=== PATIENT | male | born 1990 | race African-American/Black ===

== ENCOUNTER 2021-10-31 10:40 | Emergency (ER) | payer MEDICAID ==
[~2021-10-31] VITALS: Ht 180.3 cm; Wt 65.8 kg
[2021-10-31 11:39] VITALS: BP 143/86
== END 2021-10-31 13:12 | disposition home or self-care (01) ==
LOC: ER 10:40
DX: G51.0 Bell's palsy (principal)
CPT/HCPCS: 70450

== ENCOUNTER 2024-04-07 20:34 | Emergency (ER) | payer MEDICAID ==
[~2024-04-07] VITALS: Ht 180.3 cm; Wt 73.8 kg
[2024-04-07] MEDS ORDERED: CLIN1CAP70 PO (23:00)
[2024-04-07] MEDS ORDERED: HYDR-4902 PO (23:00)
[2024-04-08] MEDS: HYDROcodone-ACET 5/325MG TAB PO ONE (01:43)
[2024-04-08] MEDS: CLINDAMYCIN HCL 150 MG CAP PO ONE (01:46)
[2024-04-08 01:52] VITALS: BP 129/78; PULSE 77; RESP 18; TEMP 98.6
[2024-04-08 01:53] VITALS: O2SAT 100
== END 2024-04-08 02:03 | disposition home or self-care (01) ==
LOC: ER 20:34
DX: K02.9 Dental caries, unspecified (principal); K04.7 Periapical abscess without sinus; J45.909 Unspecified asthma, uncomplicated

== ENCOUNTER 2024-08-22 17:06 | Emergency (ER) | payer MEDICAID ==
[~2024-08-22] VITALS: Ht 180.3 cm; Wt 75.7 kg
[~2024-08-22 17:06] MED LIST: CLIN1CAP70 PO; HYDR-4902 PO
--- NOTE | 2024-08-22 17:29 | ECG ---
[facility] Test Date: 2024-08-22 Test Time: 17:11:00 Pat Name: TYLER MEJIA Department: ER Room: Gender: M Rehab Liaison: BARNEY : 1990 Requested By: ARON NORRIS Order Number: [id number] Reading MD: Fantasma Johnson Measurements Intervals [place] Rate: 73 P: 42 [place]: 166 QRS: -56 QRSD: 116 T: 32 QT: 392 QTc: 432 Interpretive Statements Sinus rhythm Incomplete RBBB and LAFB ST elevation suggests acute pericarditis Electronically Signed On 08-31-2024 12:56:57 PST by Fantasma Johnson Please click the below link to view image of tracing.
--- NOTE | 2024-08-22 17:32 | ED.PDOC ---
HPI Comments HPI: Poor Historian. 34y M who presents to the ED for chief complaint of chest pain. Pt states he has been having chest pain for "past few months." Pt states the pain is sharp in nature, L side of chest , non-radiating, intermittnet, with noted exacerbation of pain with movement or ambulation and no relieving factors. Pt denies any associated symptoms but denies shortness of breath, diaphoresis, palpitations or any associated symptoms. Pt otherwise denies any other symptoms at this time. Temp: 98.8 F Heart rate: 95 RR: 18 BP: 119/69 02 sat: 100 % on room air PMH: asthma PSH: DENIES Social history: DENIES tobacco use, DENIES ETOH use, endorses drug use(marijuana) Meds: DENIES Allergies: DENIES REVIEW OF SYSTEMS: CONSTITUTIONAL: Denies acute: fever, diaphoresis, chills, generalized weakness. HEAD: Denies acute: headache, photophobia Eyes: Denies acute: Double vision, vision loss, eye pain, eye discharge. EARS: Denies acute: tinnitus, hearing loss, ear discharge, ear pain, THROAT: Denies acute: sore throat, swelling, difficulty swallowing , pain with swallowing, change in voice. NECK: Denies acute: neck pain, neck swelling, stiff neck. HEART: Denies acute : palpitations, LUNGS: Denies acute: SOB, wheezing, cough, hemoptysis ABDOMEN: Denies acute: abdominal pain, Nausea, Vomiting, diarrhea, melena , hematemesis, hematochezia SKIN: Denies acute: rash, redness, lesions, itchiness. EXTREMITIES: Denies acute: calf pain, numbness, tingling, weakness, denies pain in extremity. Denies acute: Low back pain. Neuro: Denies acute: focal neurological deficit, motor or sensory focal neurological deficit, tremors, seizure like activity, confusion, dizziness, change in mental status, loss of bowel or bladder function, cauda equina like symptoms. : Denies acute: dysuria, hematuria, flank pain, increase in urinary frequency. PSYCH: Denies acute: hallucination, suicidal ideation, homicidal ideation. PHYSICAL EXAM: General: no acute distress, awake and alert. Head: normocephalic, atraumatic. Neck: supple, trachea is midline, no swelling. Throat: Normal phonation. Eyes:, no erythema, no purulent discharge, no proptosis, no icterus. Heart: regular rate, regular rhythm, no significant murmur appreciated. Lungs: no apparent respiratory distress, Able to speak in full sentences. No wheezing, no rhonchi, no crackles. No stridors Clear to auscultation bilaterally. Abdomen: non tender to palpation, non distended, soft, no guarding, no rebound, + bowel sounds. Neuro: Awake, Alert, oriented to name, self, situation, follows commands GCS=15. Speech is normal. Skin: no petechia, no purpura, no cyanosis, non-pale, not jaundice. Lower extremities: --no - Pitting edema no deformity, no focal swelling, no calf TTP. Makes eye contact. moves all four extremities. Ambulating in the ED independently. Chief Complaint: Chest Pain Time Seen by MD: 17:13 Primary Care Provider: NONE Reviewed Notes: Nurses Notes, Medications, Allergies Allergies: Coded Allergies: NO KNOWN ALLERGIES (Unverified , 10/31/21) Home Meds Active Scripts Hydrocodone-Acetaminophen (Hydrocodone Bitartrate/AC 5-325 mg) 1 Tab Tab, 1 TAB PO Q6HPRN PRN, #8 TAB As needed for pain Prov:VIVEK JUNIOR Q [employer] 04/07/24 Clindamycin Hcl (Clindamycin Hcl) 300 Mg Cap, 1 CAP PO QID for 10 Days, #40 CAP Prov:ERVIN JUNIORA Q [employer] 04/07/24 Information Source: Patient Mode of Arrival: Ambulatory Brought in by: self Past Medical History PAST MEDICAL HISTORY: Asthma Surgical History: Denies all surgeries Was a procedure done? Was a procedure done?: No CP Differential Dx Differential Diagnosis: N/A Differential Diagnosis: Other (Ddx include but not limitied to gastritis, musculoskeletal pain, radiculopathy, atypical chest pain, dissection, aneurysm, ACS, unstable angina, hiatal hernia, GERD, anxiety, costochondritis, PE, pneumothroax, neoplasm, cardiac ischemia, drug abuse, anemia.) X-Ray, Labs, Meds, VS Vital Signs Date Time Temp Pulse Resp B/P (MAP) Pulse Ox O2 Delivery O2 Flow Rate FiO2 08/22/24 20:34 97.8 65 16 121/80 (94) 100 97.8 08/22/24 18:01 67 08/22/24 17:09 73 08/22/24 17:09 98.8 71 18 119/69 (86) 100 Lab Test 08/22/24 19:04 08/22/24 18:21 08/22/24 17:17 Range/Units Urine Opiates Screen Neg NEGATIVE Urine Fentanyl Screen Neg NEGATIVE Urine Barbiturates Screen Neg NEGATIVE Urine Phencyclidine Screen Neg NEGATIVE Urine Amphetamines Screen Neg NEGATIVE Urine Benzodiazepines Screen Neg NEGATIVE Urine Cocaine Screen Neg NEGATIVE Urine Cannabinoids Screen Pos NEGATIVE Troponin I High Sensitivity 3 L 5 </=54 ng/L White Blood Count 4.3 L 4.4-10.8 10^3/uL Red Blood Count 5.24 4.5-5.90 10^6/uL Hemoglobin 14.5 13.5-17.5 g/dL Hematocrit 42.8 41.0-53.0 % Mean Corpuscular Volume 81.7 80.0-100.0 fL Mean Corpuscular Hemoglobin 27.6 L 28.0-32.0 pg Mean Corpuscular Hemoglobin Concent 33.8 32.0-36.0 g/dL Red Cell Distribution Width 14.1 11.8-14.3 % Platelet Count 243 140-450 10^3/uL Mean Platelet Volume 9.7 6.9-10.8 fL Neutrophils (%) (Auto) 43.0 37.0-80.0 % Lymphocytes (%) (Auto) 45.1 10.0-50.0 % Monocytes (%) (Auto) 8.2 0.0-12.0 % Eosinophils (%) (Auto) 2.7 0.0-7.0 % Basophils (%) (Auto) 1.0 0.0-2.0 % Neutrophils # (Auto) 1.8 1.6-8.6 10 ^3/uL Lymphocytes # (Auto) 1.9 0.4-5.4 10 ^3/uL Monocytes # (Auto) 0.3 0-1.3 10 ^3/uL Eosinophils # (Auto) 0.1 0-0.8 10 ^3/uL Basophils # (Auto) 0 0-0.2 10 ^3/uL Nucleated Red Blood Cells 0.1 % Prothrombin Time 10.5 9.3-11.8 sec Prothrombin Time INR 0.99 0.9-1.15 Activated Partial Thromboplast Time 26.7 24.5-34.5 SEC D-Dimer, Quantitative < 0.19 0.0-0.49 mg/L FEU Sodium Level 141 136-145 mmol/L Potassium Level 4.2 3.5-5.1 mmol/L Chloride Level 107 98-107 mmol/L Carbon Dioxide Level 28 20-31 mmol/L Anion Gap 6 5-15 Blood Urea Nitrogen 7 L 9-23 mg/dL Creatinine 1.00 0.700-1.30 mg/dL Glomerular Filtration Rate Calc 100 >90 mL/min BUN/Creatinine Ratio 7.0 L 10.0-20.0 Serum Glucose 71 L 74-106 mg/dL Calcium Level 9.9 8.7-10.4 mg/dL Magnesium Level 2.0 1.6-2.6 mg/dL Total Bilirubin 0.8 0.2-1.0 mg/dL Aspartate Amino Transferase (AST) < 8 L 13-40 U/L Alanine Aminotransferase (ALT) 18 7-40 U/L Alkaline Phosphatase 69 46-116 U/L B-Type Natriuretic Peptide 5.00 0-100 pg/mL Total Protein 7.2 5.7-8.2 g/dL Albumin 4.7 3.2-4.8 g/dL [place] [address] Ph: [phone] DIAGNOSTIC IMAGING Diagnostic Imaging Report : [id number] Signed PATIENT: TYLER MEJIA ACCT: [id number] UNIT: [id number] : 1990 LOC: ER ROOM / BED: / AGE / SEX: 34 / M ADM STATUS: REG ER SERVICE 1721 ORDERING PHYSICIAN: ARON NORRIS MD PROCEDURE(s): CXRP - CHEST PORTABLE REASON: CP ORDER NUMBER(s): [id number], ACCESSION NUMBER(s): [id number] Procedure: XY CHEST PORTABLE 08/22/2024 05:21 PM Indication: CP. Comparison: None TECHNIQUE: XY CHEST PORTABLE FINDINGS: Medical devices: None. Cardiomediastinal: The heart is normal in size. Pulmonary vasculature is within normal limits. Lungs: No focal pulmonary opacity is seen. The costophrenic angles are clear. No pneumothorax. Bones/soft tissues: No acute abnormality is noted. IMPRESSION: 1. No acute cardiopulmonary disease. ATED BY: KIKI DAVIDSON MD DICTATED DATE/TIME: 08/22/241738 SIGNED BY: KIKI DAVIDSON MD SIGNED DATE/TIME: 08/22/241738 CC: Time of 1ST Reevaluation: 20:41 Reevaluation 1ST: Resolved Patient Education/Counseling: Diagnosis, Treatment Family Education/Counseling: No Family Present Comments Patient presented with the above HPI.---cardiac---workup was initiated. patient was found with the above mentioned diagnosis. Patient denying any active symptoms at the time of my evaluation. Patient ED course and VS have been stabilized. Patient has been reassessed in the ED and remained in a stable condition. Pertinent incidental findings were discussed with the patient and/or family. Patient/family voices understanding and is agreeable with plan. Patient has been observed in the ED adequate length of time to insure improvement/stability. patient was discharged home in a stable condition. EKG was reviewed by myself. Heart score is 0 All the reports of any imaging studies that were ordered by myself were reviewed by myself. Departure 1 Departure Time of Disposition: 19:36 Impression: Primary Impression: Chest pain Disposition: HOME / SELF CARE / HOMELESS Condition: Stable Additional Instructions: Additional discharge instructions: You MUST follow-up with your primary care/family doctor in 1 to 2 days. If you are unable to see your primary care/family doctor, please return to our emergency room for re-assessment and re-evaluation in 1 to 2 days. Return to the emergency room here in our facility or to the nearest ER [facility] if your symptoms change or worsen. CONSULTATIONS: you MUST Follow-up for consultation as soon as possible with: -cardiology in 1-2 days. Please call for appointment You MUST call the consultants office yourself to make an appointment. You may need to arrange that through your insurance and/or your primary/family doctor. If you are unable to see the mortgage consultant in 1 to 2 days, you must return to our emergency room (or any other ER of your choice) for re-assessment and re- evaluation. Adequate fluid hydration. Avoid any smoking or drugs. Discharged With: Self Critical Care Note Critical Care Time?: No Heart Score Heart Score: Heart Score Response (Comments) Value History Slightly Suspicious 0 EKG Normal 0 Age <45 0 Risk Factors No known risk factors 0 Troponin Normal limit 0 Total 0 I personally scribed for MATTEO RAJAN DO ([email or web address]) on 08/22/24 at 17:32. Electronically submitted by Marcela Mcmahon ([email or web address]). I personally scribed for MATTEO RAJAN DO ([email or web address]) on 08/22/24 at 19:04. Electronically submitted by Marcela Mcmahon ([email or web address]). I personally scribed for MATTEO RAJAN DO ([email or web address]) on 08/22/24 at 19:05. Electronically submitted by Marcela Mcmahon ([email or web address]). MATTEO RAJAN DO Aug 22, 2024 17:32
--- NOTE | 2024-08-22 17:42 | DVH ---
Procedure: XY CHEST PORTABLE 08/22/2024 05:21 PM Indication: CP. Comparison: None TECHNIQUE: XY CHEST PORTABLE FINDINGS: Medical devices: None. Cardiomediastinal: The heart is normal in size. Pulmonary vasculature is within normal limits. Lungs: No focal pulmonary opacity is seen. The costophrenic angles are clear. No pneumothorax. Bones/soft tissues: No acute abnormality is noted. IMPRESSION: 1. No acute cardiopulmonary disease.
[2024-08-22 18:06] LABS: Basophils # (auto) 0 10 ^3/uL (0-0.2); Eosinophils # (auto) 0.1 10 ^3/uL (0-0.8); Eosinophils % (auto) 2.7 % (0.0-7.0); Hematocrit 42.8 % (41.0-53.0); Hemoglobin 14.5 g/dL (13.5-17.5); Lymphocytes # (auto) 1.9 10 ^3/uL (0.4-5.4); Lymphocytes % (auto) 45.1 % (10.0-50.0); Mean Corpuscular Hemoglobin 27.6 pg (28.0-32.0); Mean Corpuscular Hgb Conc. 33.8 g/dL (32.0-36.0); Mean Corpuscular Volume 81.7 fL (80.0-100.0); Monocytes # (auto) 0.3 10 ^3/uL (0-1.3); Monocytes % (auto) 8.2 % (0.0-12.0); Neutrophils # (auto) 1.8 10 ^3/uL (1.6-8.6); Nucleated Red Blood Cells % 0.1 %; Platelet Count (auto) 243 10^3/uL (140-450); Red Blood Cells 5.24 10^6/uL (4.5-5.90); Red Cell Distribution Width 14.1 % (11.8-14.3); White Blood Cell 4.3 10^3/uL (4.4-10.8)
[2024-08-22 18:29] LABS: Alanine Aminotransferase 18 U/L (7-40); Albumin 4.7 g/dL (3.2-4.8); Alkaline Phosphatase 69 U/L (46-116); Anion Gap 6 (5-15); Aspartate Aminotransferase < 8 U/L (13-40); Bilirubin, Total 0.8 mg/dL (0.2-1.0); Blood Urea Nitrogen 7 mg/dL (9-23); Calcium 9.9 mg/dL (8.7-10.4); Carbon Dioxide 28 mmol/L (20-31); Chloride 107 mmol/L (98-107); Glucose 71 mg/dL (74-106); Potassium 4.2 mmol/L (3.5-5.1); Sodium 141 mmol/L (136-145); Total Protein 7.2 g/dL (5.7-8.2)
[2024-08-22 18:33] LABS: INR 0.99 (0.9-1.15); Partial Thromboplastin Time 26.7 SEC (24.5-34.5); Prothrombin Time 10.5 sec (9.3-11.8)
--- NOTE | 2024-08-22 18:42 | ECG ---
[facility] Test Date: 2024-08-22 Test Time: 18:01:45 Pat Name: TYLER MEJIA Department: ER Room: Gender: M [employer] Ambassador: [place] : 1990 Requested By: ARON NORRIS Order Number: [id number] Reading MD: Fantasma Johnson Measurements Intervals [place] Rate: 67 P: 48 [place]: 171 QRS: -58 QRSD: 112 T: 56 QT: 408 QTc: 431 Interpretive Statements Sinus rhythm Incomplete RBBB and LAFB ST elevation suggests acute pericarditis Electronically Signed On 08-31-2024 12:57:05 PST by Fantasma Johnson Please click the below link to view image of tracing.
[2024-08-22 19:46] LABS: Amphetamine Screen, Urine Neg (NEGATIVE); Barbiturate Scree,Urine Neg (NEGATIVE); Benzodiazephine Screen, Urine Neg (NEGATIVE); Cocaine Screen, Urine Neg (NEGATIVE)
[2024-08-22 19:47] LABS: Cannabinoid Screen, Urine Pos (NEGATIVE); Opiate Scree,Urine Neg (NEGATIVE); Phencyclidine Screen, Urine Neg (NEGATIVE)
[2024-08-22 20:30] VITALS: PULSE 65; RESP 16; O2SAT 100
[2024-08-22 20:34] VITALS: BP 121/80; PULSE 65; RESP 16; TEMP 97.8; O2SAT 100
== END 2024-08-22 20:43 | disposition home or self-care (01) ==
LOC: ER 17:06
DX: R07.89 Other chest pain (principal); J45.909 Unspecified asthma, uncomplicated; F15.90 Other stimulant use, unspecified, uncomplicated; Z79.899 Other long term (current) drug therapy
CPT/HCPCS: 36415; 71045; 80053; 80307; 83735; 83880; 84484; 85025; 85379; 85610; 85730; 93005